=== PATIENT | female | born 1985 | race Caucasian/White ===

== ENCOUNTER 2019-11-03 02:25 | Emergency (ER) | payer OTHER ==
[~2019-11-03] VITALS: Ht 160 cm; Wt 62.0 kg
[2019-11-03 02:30] VITALS: BP 132/79
[2019-11-03 03:45] LABS: HCG UR SG 1.013 (1.003-1.030); MICROSCOPIC NOT IND
--- NOTE | 2019-11-03 03:45 | NUR ---
URINE HAS BEEN COLLECTED AND SENT TO LAB. CT HAS BEEN COMPLETED. PT ALLOWED TO LEAVE ED AT THIS TIME. WILL FOLLOW UP WITH RESULTS. PT AMBULATING WELL UPON DEPARTURE.
[2019-11-03 03:46] LABS: CULTURE INDICATED? NO
== END 2019-11-03 04:11 | disposition home or self-care (01) ==
LOC: ED 03:39
DX: S16.1XXA Strain of muscle, fascia and tendon at neck level, initial encounter (principal); Z90.89 Acquired absence of other organs; V49.49XA Driver injured in collision with other motor vehicles in traffic accident, initial encounter; Y93.89 Activity, other specified; Y92.488 Other paved roadways as the place of occurrence of the external cause; Y99.8 Other external cause status
CPT/HCPCS: 72125; 81003; 81025; 99284